=== PATIENT | male | born 1970 | race Caucasian/White ===

== ENCOUNTER 2020-08-17 19:28 | Emergency (ER) | payer BC, SELFPAY ==
[~2020-08-17] VITALS: Ht 165.1 cm; Wt 79.6 kg
[2020-08-17 19:36] VITALS: Ht 165.1 cm; Wt 79.6 kg
[2020-08-17 21:22] VITALS: BP 161/91
== END 2020-08-17 21:22 | disposition home or self-care (01) ==
LOC: ED 19:28
DX: U07.1 COVID-19 (principal)
CPT/HCPCS: 82962; U0003

== ENCOUNTER 2020-08-19 12:16 | Emergency (ER) | payer MEDICAID, SELFPAY ==
[~2020-08-19] VITALS: Ht 167.6 cm; Wt 79.4 kg
[2020-08-19 12:33] VITALS: BP 133/87; Ht 167.6 cm; Wt 79.4 kg
== END 2020-08-19 13:12 | disposition home or self-care (01) ==
LOC: ED 12:16
DX: U07.1 COVID-19 (principal)